=== PATIENT | female | born 1970 | race Caucasian/White ===

== ENCOUNTER 2017-08-04 01:13 | Emergency (ER) | payer BC ==
[2017-08-04 01:18] VITALS: RESP 16
[2017-08-04] MEDS ORDERED: KETOROLAC 15 MG/1 ML SDV IVP ONE (01:31)
[2017-08-04] MEDS ORDERED: DEXAMETHASONE 10 MG/ML VIAL IVP ONE (01:31)
[2017-08-04] MEDS ORDERED: HALOPERIDOL LACT 5 MG/ML INJ IVP ONE (01:31)
[2017-08-04] MEDS ORDERED: NS 1,000 ML IV ONE (01:31)
--- NOTE | 2017-08-04 01:33 | EDPHY ---
H & P Stated Complaint: migraine Time Seen by Provider: 08/04/17 01:30 HPI/ROS: Chief Complaint: Migraine headache HPI: 47-year-old woman history of chronic migraine headaches presenting with a typical headache which is not improving with her home Imitrex. Patient states she has had a headache for about a week is getting significantly worse today. She has taken Imitrex multiple times without any relief. She has also taken some sinus rinses and using Flonase without any relief. She has been to the hospital before for her migraine headaches. She is positive photophobia. She has had some nausea and vomiting. No neck pain or stiffness. No vision or hearing changes. Pain right now is about an 8/10 ROS: 10 point Review of Systems is negative except as noted in the HPI. PMH: Migraine headaches, Ronna's, sinus disease Social History: No smoking, occasional alcohol, no recreational drug use Family History: non-contributory Physical Exam: Gen: Awake, Alert, No Distress HEENT: Nose: no rhinorrhea Eyes: PERRLA, EOMI Mouth: Moist mucosa Neck: Supple, no JVD, no meningismus Chest: nontender, lungs clear to auscultation Heart: S1, S2 normal, no murmur Abd: Soft, non-tender, no guarding Back: no CVA tenderness, no midline tenderness Ext: no edema, non-tender Skin: no rash Neuro: CN II-XII intact, Sensation grossly intact, Strength 5/5 in bilateral upper and lower extremities - Personal History LMP (Females 10-55): IUD In Place Current Tetanus/Diphtheria Vaccine: Yes Tetanus Vaccine Date: utd - Medical/Surgical History Hx Asthma: No Hx Chronic Respiratory Disease: No Hx Diabetes: No Hx Cardiac Disease: No Hx Renal Disease: No Hx Cirrhosis: No Hx Alcoholism: No Hx HIV/AIDS: No Hx Splenectomy or Spleen Trauma: No Other PMH: PMHx: Asthma, Migraines, IBS, celiac, UTI, Kidney stones, hashimotos , C-diff 2009. PSHx: sinus - Social History Smoking Status: Never smoked Constitutional: Initial Vital Signs Temperature (C) 36.6 C 08/04/17 01:14 Heart Rate 78 08/04/17 01:14 Respiratory Rate 16 08/04/17 01:14 Blood Pressure 121/86 H 08/04/17 01:14 O2 Sat (%) 95 09/13/17 01:14 O2 Delivery Mode Room Air Allergies/Adverse Reactions: promethazine HCl [From Phenergan] Allergy (Severe, Verified 09/18/16 15:56) Swelling/neck,face,throat cephalexin monohydrate [From Keflex] Allergy (Intermediate, Verified 09/18/16 15 :56) face swells and rash metoclopramide HCl [From Reglan] Allergy (Intermediate, Verified 09/18/16 15:56) increases "seizures" nitrofurantoin [From Macrobid] Allergy (Intermediate, Verified 09/18/16 15:56) nitrofurantoin macrocrystalline [From Macrobid] Allergy (Intermediate, Verified 09/18/16 15:56) prochlorperazine edisylate [From Compazine] Allergy (Intermediate, Verified 15:56) poss extrapyramidal sxs prochlorperazine maleate [From Compazine] Allergy (Intermediate, Verified 15:56) possd intrapyramidal sulfamethoxazole [From Septra] Allergy (Intermediate, Verified 09/18/16 15:56) Rash trimethoprim [From Septra] Allergy (Intermediate, Verified 09/18/16 15:56) Rash azithromycin [Azithromycin] Allergy (Mild, Verified 09/18/16 15:56) Rash Home Medications: Medication Instructions Recorded Albuterol Hfa Anes Only [Proair 2 puffs IH AD PRN 08/12/12 Hfa Icu (RX)] Sumatriptan Succinate [Imitrex] 25 mg PO AD PRN 08/12/12 Albuterol 08/14/14 Progesterone 08/14/14 Zegerid 20 mg Capsule 08/14/14 Medical Decision Making ED Course/Re-evaluation: Patient is significantly improved after Haldol, Decadron, Toradol and Benadryl. Will discharge with follow up with her primary care physician as an outpatient. - Data Points Medications Given: Discontinued Medications Dexamethasone (Decadron Injection) 10 mg IVP EDNOW ONE Stop: 08/04/17 01:32 Last Admin: 08/04/17 01:41 Dose: 10 mg Diphenhydramine HCl (Benadryl Injection) 50 mg IVP EDNOW ONE Stop: 08/04/17 01:32 Last Admin: 08/04/17 01:40 Dose: 50 mg Haloperidol Lactate (Haldol Injection) 2.5 mg IVP EDNOW ONE Stop: 08/04/17 01:32 Last Admin: 08/04/17 01:40 Dose: 2.5 mg Sodium Chloride (Ns) 1,000 mls @ 0 mls/hr IV ONCE ONE; Wide Open PRN Reason: Protocol Stop: 08/04/17 01:32 Last Admin: 08/04/17 01:41 Dose: 1,000 mls Ketorolac Tromethamine (Toradol) 15 mg IVP EDNOW ONE Stop: 08/04/17 01:32 Last Admin: 08/04/17 01:51 Dose: 15 mg Departure - Departure Disposition: Home, Routine, Self-Care Clinical Impression: Migraine headache Condition: Good Instructions: Migraine Headache (ED) Additional Instructions: Follow up with primary care physician in 2-3 days for further evaluation. Return to the emergency department for increasing headache, fevers, chills, nausea, vomiting, or any other concerns. Referrals: Abel Tapia [Primary Care Provider] - As per Instructions
[2017-08-04 03:31] VITALS: BP 124/76; PULSE 63; TEMP 98.1; O2SAT 97
== END 2017-08-04 03:41 | disposition home or self-care (01) ==
DX: G43.909 Migraine, unspecified, not intractable, without status migrainosus (principal); J45.909 Unspecified asthma, uncomplicated; E86.9 Volume depletion, unspecified
CPT/HCPCS: 96374; J1100; J1200; J1885